=== PATIENT | female | born 1985 | race Caucasian/White ===

== ENCOUNTER 2016-12-13 20:11 | Emergency (ER) | payer MEDICAID | END 2016-12-13 22:00 | disposition home or self-care (01) | LOC: D.ER 20:11 | DX: R13.10 Dysphagia, unspecified (principal); E11.9 Type 2 diabetes mellitus without complications; I10 Essential (primary) hypertension; N93.8 Other specified abnormal uterine and vaginal bleeding; E28.2 Polycystic ovarian syndrome; F17.200 Nicotine dependence, unspecified, uncomplicated; J02.9 Acute pharyngitis, unspecified ==

== ENCOUNTER 2017-02-28 20:09 | Emergency (ER) | payer MEDICAID | END 2017-02-28 23:33 | disposition home or self-care (01) | LOC: D.ER 20:09 | DX: T65.811A Toxic effect of latex, accidental (unintentional), initial encounter (principal); Y92.029 Unspecified place in mobile home as the place of occurrence of the external cause; F17.200 Nicotine dependence, unspecified, uncomplicated; E11.9 Type 2 diabetes mellitus without complications; I10 Essential (primary) hypertension ==

== ENCOUNTER 2019-01-23 14:06 | Emergency (ER) | payer MEDICAID ==
[~2019-01-23] VITALS: Ht 157.5 cm; Wt 102.3 kg
[2019-01-23 14:16] VITALS: Ht 157.5 cm; Wt 102.3 kg
[2019-01-23] MEDS ORDERED: BAYER CHEWABLE81 MG PO (14:19)
[2019-01-23] MEDS ORDERED: LIPITOR40 MG PO (14:19)
[2019-01-23] MEDS ORDERED: BUSPAR10 MG PO (14:20)
[2019-01-23] MEDS ORDERED: CYMBALTA60 MG PO (14:20)
[2019-01-23] MEDS ORDERED: CYCLOBENZAPRINE10 MG PO (14:20)
[2019-01-23] MEDS ORDERED: EPIPEN 2-P0.3 MG/0.3 IM (14:21)
[2019-01-23] MEDS ORDERED: NEURONTIN800 MG PO (14:21)
[2019-01-23] MEDS ORDERED: TRESIBA FL100 UNIT/1 SC (14:22)
[2019-01-23] MEDS ORDERED: HUMULIN N100 U/ML SC (14:22)
[2019-01-23] MEDS ORDERED: ZOFRAN4 MG PO (14:23)
[2019-01-23] MEDS ORDERED: TOPROL XL25 MG PO (14:23)
[2019-01-23] MEDS ORDERED: OMEPRAZOLE20 M1 PO (14:23)
[2019-01-23] MEDS ORDERED: LISINOPRIL2.5 MG PO (14:23)
[2019-01-23] MEDS ORDERED: ZANTAC300 MG PO (14:24)
[2019-01-23] MEDS ORDERED: PIOGLITAZONE15 MG PO (14:24)
[2019-01-23] MEDS ORDERED: ALDACTONE25 MG PO (14:24)
[2019-01-23 15:03] LABS: BASOPHILS 0.3 % (0-2); EOSINOPHILS 1.8 % (0-7); HEMATOCRIT 37.8 % (36.0-48.0); HEMOGLOBIN 12.9 g/dL (12-16); IMMATURE GRANULOCYTES 0.5 % (0-5); LYMPHOCYTES 27.6 % (15-50); MCH 33.2 pg (26.0-34.0); MCHC 34.1 g/dL (31.0-37.0); MCV 97.4 fL (80.0-100.0); MEAN PLATELET VOLUME 10.1 fL (7.4-10.4); MONOCYTES 9.1 % (2-11); NEUTROPHILS 60.7 % (40-80); PLATELET COUNT 248 10x3/uL (130-400); RBC 3.88 10x6/uL (4.00-5.40); RDW 13.3 % (11.5-14.5); WBC 6.2 10x3/uL (4.8-10.8)
[2019-01-23 15:10] LABS: ALBUMIN 3.9 g/dL (3.4-5.0); ALKALINE PHOSPHATASE 87 U/L (46-116); ALT (SGPT) 21 U/L (10-68); BILIRUBIN - TOTAL 0.64 mg/dL (0.2-1.3); CALC OSMOLALITY 281 mosm/kg (275-300); CALCIUM 8.6 mg/dL (8.5-10.1); CARBON DIOXIDE 28.4 mmol/L (21.0-32.0); CHLORIDE - SERUM 101 mmol/L (98-107); CREATININE - SERUM 0.9 mg/dL (0.6-1.3); GLUCOSE 201 mg/dL (74-106); POTASSIUM - SERUM 3.9 mmol/L (3.5-5.1); PROTEIN - SERUM 7.3 g/dL (6.4-8.2); SODIUM 138 mmol/L (136-145); UREA NITROGEN 12 mg/dL (7-18); eGFR NON AFRICAN AMERICAN 75 mL/min (90-120)
[2019-01-23 15:11] LABS: APTT 27.5 SECONDS (22.8-39.4); INR 1.04 (0.85-1.17); PROTIME 13.1 SECONDS (11.6-15.0)
[2019-01-23 15:21] LABS: CKMB 0.3 U/L (0.0-3.6); CREATINE KINASE 101 UL (21-215); MAGNESIUM - SERUM 1.7 mg/dL (1.8-2.4); TROPONIN-I < 0.017 ng/mL (0.000-0.060)
[2019-01-23 18:33] LABS: CKMB 0.3 U/L (0.0-3.6); CREATINE KINASE 81 UL (21-215); TROPONIN-I < 0.017 ng/mL (0.000-0.060)
[2019-01-23] MEDS ORDERED: OMEPRAZOLE40 MG PO (19:19)
[2019-01-23 20:24] VITALS: BP 102/48
== END 2019-01-23 20:24 | disposition home or self-care (01) ==
LOC: D.ER 14:06
PROVIDERS: Family Medicine
DX: K21.9 Gastro-esophageal reflux disease without esophagitis (principal)

== ENCOUNTER 2019-01-26 13:42 | Emergency (ER) | payer MEDICAID ==
[~2019-01-26] VITALS: Ht 157.5 cm; Wt 102.3 kg
[~2019-01-26 13:42] MED LIST: ALDACTONE25 MG PO; BAYER CHEWABLE81 MG PO; BUSPAR10 MG PO; CYCLOBENZAPRINE10 MG PO; CYMBALTA60 MG PO; EPIPEN 2-P0.3 MG/0.3 IM; HUMULIN N100 U/ML SC; LIPITOR40 MG PO; LISINOPRIL2.5 MG PO; NEURONTIN800 MG PO; OMEPRAZOLE20 M1 PO; OMEPRAZOLE40 MG PO; PIOGLITAZONE15 MG PO; TOPROL XL25 MG PO; TRESIBA FL100 UNIT/1 SC; ZANTAC300 MG PO; ZOFRAN4 MG PO
[2019-01-26 13:43] VITALS: Ht 157.5 cm; Wt 102.3 kg
[2019-01-26 16:18] VITALS: BP 132/78
== END 2019-01-26 16:19 | disposition home or self-care (01) ==
LOC: D.ER 13:42
DX: R51 Headache (principal); E11.9 Type 2 diabetes mellitus without complications

== ENCOUNTER 2019-02-08 10:03 | Emergency (ER) | payer MEDICAID ==
[~2019-02-08] VITALS: Ht 157.5 cm; Wt 98.6 kg
[2019-02-08 10:07] VITALS: Ht 157.5 cm; Wt 98.6 kg
[2019-02-08] MEDS ORDERED: DOXYCYCLINE (10:09)
[2019-02-08 11:02] LABS: HCG URINE NEGATIVE (NEGATIVE)
[2019-02-08 11:07] LABS: BASOPHILS 0.2 % (0-2); EOSINOPHILS 0.8 % (0-7); HEMATOCRIT 39.8 % (36.0-48.0); HEMOGLOBIN 14.3 g/dL (12-16); IMMATURE GRANULOCYTES 0.3 % (0-5); LYMPHOCYTES 17.4 % (15-50); MCH 33.4 pg (26.0-34.0); MCHC 35.9 g/dL (31.0-37.0); MEAN PLATELET VOLUME 10.9 fL (7.4-10.4); MONOCYTES 6.6 % (2-11); NEUTROPHILS 74.7 % (40-80); PLATELET COUNT 277 10x3/uL (130-400); RBC 4.28 10x6/uL (4.00-5.40); WBC 11.9 10x3/uL (4.8-10.8)
[2019-02-08 11:09] LABS: UDS - AMPHET NEGATIVE QUAL (NEGATIVE); UDS - BARB NEGATIVE QUAL (NEGATIVE); UDS - BENZO NEGATIVE QUAL (NEGATIVE); UDS - COCAINE NEGATIVE QUAL (NEGATIVE); UDS - OPIATE NEGATIVE QUAL (NEGATIVE); UDS - PCP NEGATIVE QUAL (NEGATIVE); UDS - THC POSITIVE QUAL (NEGATIVE)
[2019-02-08 11:15] LABS: APPEARANCE CLEAR (CLEAR); BILIRUBIN NEGATIVE (NEGATIVE); COLOR YELLOW (YELLOW); GLUCOSE 50 mg/dL (NEGATIVE); KETONE NEGATIVE (NEGATIVE); NITRITE NEGATIVE (NEGATIVE); PROTEIN NEGATIVE (NEGATIVE); UROBILINOGEN NORMAL (NORMAL)
[2019-02-08 11:29] LABS: INR 1.04 (0.85-1.17); PROTIME 13.1 SECONDS (11.6-15.0)
--- NOTE | 2019-02-08 11:53 | NUR ---
ACOORDING TO THE SUICIDE ASSESSMENT SCORE THE PATIENT SCORES LOW AND DOES NOT REQUIRE A 1:1 ASSESSMENT.
[2019-02-08 12:59] LABS: ALBUMIN 4.2 g/dL (3.4-5.0); ALKALINE PHOSPHATASE 76 U/L (46-116); ALT (SGPT) 19 U/L (10-68); BILIRUBIN - TOTAL 0.74 mg/dL (0.2-1.3); CALC OSMOLALITY 282 mosm/kg (275-300); CALCIUM 8.8 mg/dL (8.5-10.1); CARBON DIOXIDE 24.8 mmol/L (21.0-32.0); CHLORIDE - SERUM 105 mmol/L (98-107); CREATININE - SERUM 0.8 mg/dL (0.6-1.3); GLUCOSE 172 mg/dL (74-106); PROTEIN - SERUM 7.3 g/dL (6.4-8.2); SODIUM 140 mmol/L (136-145); UREA NITROGEN 12 mg/dL (7-18); eGFR NON AFRICAN AMERICAN 86 mL/min (90-120)
[2019-02-08 13:02] LABS: AMYLASE - SERUM 30 U/L (25-115); LIPASE 122 U/L (73-393)
[2019-02-08 13:03] LABS: TROPONIN-I < 0.017 ng/mL (0.000-0.060)
[2019-02-08] MEDS ORDERED: ZOFRAN ODT4 MG/UDTAB PO (13:56)
[2019-02-08 13:57] VITALS: BP 138/70
== END 2019-02-08 14:24 | disposition home or self-care (01) ==
LOC: D.ER 10:03
PROVIDERS: Family Medicine
DX: R11.2 Nausea with vomiting, unspecified (principal); H92.02 Otalgia, left ear; Z76.5 Malingerer [conscious simulation]

== ENCOUNTER 2019-10-02 22:25 | Emergency (ER) | payer MEDICAID ==
[~2019-10-02] VITALS: Ht 157.5 cm; Wt 109.1 kg
[~2019-10-02 22:25] MED LIST changes: +DOXYCYCLINE; +ZOFRAN ODT4 MG/UDTAB PO
[2019-10-02 22:27] VITALS: Ht 157.5 cm; Wt 109.1 kg
[2019-10-02] MEDS ORDERED: METOPROLOL TART25 MG PO (22:32)
[2019-10-02] MEDS ORDERED: LEXAPRO20 MG PO (22:33)
[2019-10-02] MEDS ORDERED: PROTONIX40 MG PO (22:33)
[2019-10-02] MEDS ORDERED: COZAAR25 MG PO (22:33)
[2019-10-02] MEDS ORDERED: LIPITOR40 MG PO (22:33)
[2019-10-02] MEDS ORDERED: NOVOLOG100 UNIT/1 SC (22:34)
[2019-10-02] MEDS ORDERED: LEVEMIR IN100 UNITS/ SC (22:34)
[2019-10-02] MEDS ORDERED: VISTARIL25 MG PO (22:35)
[2019-10-02 22:50] LABS: BILIRUBIN NEGATIVE (NEGATIVE); GLUCOSE NEGATIVE (NEGATIVE); KETONE NEGATIVE (NEGATIVE); NITRITE NEGATIVE (NEGATIVE); SPECIFIC GRAVITY 1.005 (1.005-1.020); UROBILINOGEN NORMAL (NORMAL)
[2019-10-02 22:54] LABS: BACTERIA FEW /hpf (NEGATIVE); EPITHELIAL CELLS 0-5 /hpf (0-5); RED CELLS - URINE 0-5 /hpf (0-5); WHITE CELLS - URINE 0-5 /hpf (NEGATIVE)
[2019-10-03] MEDS ORDERED: MACROBID100 MG PO (00:18)
[2019-10-03 00:57] VITALS: BP 121/67
== END 2019-10-03 00:58 | disposition home or self-care (01) ==
LOC: D.ER 22:25
PROVIDERS: Family Medicine
DX: N30.90 Cystitis, unspecified without hematuria (principal); E11.9 Type 2 diabetes mellitus without complications; I11.0 Hypertensive heart disease with heart failure; I50.9 Heart failure, unspecified; K21.9 Gastro-esophageal reflux disease without esophagitis; Z72.0 Tobacco use; Z79.4 Long term (current) use of insulin; M54.5 Low back pain; R10.30 Lower abdominal pain, unspecified

== ENCOUNTER 2019-10-27 17:21 | Emergency (ER) | payer MEDICAID ==
[~2019-10-27] VITALS: Ht 157.5 cm; Wt 105.5 kg
[~2019-10-27 17:21] MED LIST changes: +COZAAR25 MG PO; +LEVEMIR IN100 UNITS/ SC; +LEXAPRO20 MG PO; +MACROBID100 MG PO; +METOPROLOL TART25 MG PO; +NOVOLOG100 UNIT/1 SC; +PROTONIX40 MG PO; +VISTARIL25 MG PO
[2019-10-27 17:33] VITALS: Ht 157.5 cm; Wt 105.5 kg
[2019-10-27 17:55] LABS: BASOPHILS 0.2 % (0-2); EOSINOPHILS 1.2 % (0-7); HEMATOCRIT 39.5 % (36.0-48.0); HEMOGLOBIN 13.1 g/dL (12-16); IMMATURE GRANULOCYTES 0.2 % (0-5); LYMPHOCYTES 16.7 % (15-50); MCH 31.4 pg (26.0-34.0); MCHC 33.2 g/dL (31.0-37.0); MCV 94.7 fL (80.0-100.0); MEAN PLATELET VOLUME 9.6 fL (7.4-10.4); MONOCYTES 8.1 % (2-11); NEUTROPHILS 73.6 % (40-80); PLATELET COUNT 242 10x3/uL (130-400); RBC 4.17 10x6/uL (4.00-5.40); RDW 13.5 % (11.5-14.5); WBC 11.4 10x3/uL (4.8-10.8)
[2019-10-27 18:08] LABS: CALC OSMOLALITY 279 mosm/kg (275-300); CALCIUM 8.6 mg/dL (8.5-10.1); CARBON DIOXIDE 30.7 mmol/L (21.0-32.0); CHLORIDE - SERUM 99 mmol/L (98-107); SODIUM 136 mmol/L (136-145); UREA NITROGEN 12 mg/dL (7-18); eGFR NON AFRICAN AMERICAN 67 mL/min (90-120)
[2019-10-27 18:11] LABS: GLUCOSE 244 mg/dL (74-106)
[2019-10-27 18:26] LABS: ALBUMIN 3.7 g/dL (3.4-5.0); ALKALINE PHOSPHATASE 91 U/L (30-120); ALT (SGPT) 32 U/L (10-68); APTT 30.1 SECONDS (22.8-39.4); BILIRUBIN - TOTAL 0.61 mg/dL (0.2-1.3); CKMB 0.4 U/L (0.0-3.6); CREATINE KINASE 68 UL (21-215); INR 1.15 (0.85-1.17); MAGNESIUM - SERUM 1.6 mg/dL (1.8-2.4); PROTEIN - SERUM 7.3 g/dL (6.4-8.2); PROTIME 14.7 SECONDS (11.6-15.0)
[2019-10-27 18:30] LABS: TROPONIN-I < 0.017 ng/mL (0.000-0.060)
[2019-10-27 20:41] LABS: CKMB 0.1 U/L (0.0-3.6); CREATINE KINASE 72 UL (21-215); TROPONIN-I < 0.017 ng/mL (0.000-0.060)
[2019-10-27 21:38] VITALS: BP 105/48
== END 2019-10-27 21:38 | disposition home or self-care (01) ==
LOC: D.ER 17:21
PROVIDERS: Family Medicine
DX: R07.89 Other chest pain (principal); R42 Dizziness and giddiness; R00.2 Palpitations; E11.9 Type 2 diabetes mellitus without complications; I11.0 Hypertensive heart disease with heart failure; I50.9 Heart failure, unspecified; K21.9 Gastro-esophageal reflux disease without esophagitis; Z72.0 Tobacco use; Z79.4 Long term (current) use of insulin

== ENCOUNTER 2019-12-30 05:14 | Emergency (ER) | payer MEDICAID ==
[~2019-12-30] VITALS: Ht 157.5 cm; Wt 104.5 kg
[2019-12-30 05:23] VITALS: Ht 157.5 cm; Wt 104.5 kg
[2019-12-30] MEDS ORDERED: ULTRAM50 MG PO (06:28)
[2019-12-30 06:49] VITALS: BP 130/80
== END 2019-12-30 06:46 | disposition home or self-care (01) ==
LOC: D.ER 05:14
DX: S20.211A Contusion of right front wall of thorax, initial encounter (principal); S60.211A Contusion of right wrist, initial encounter; E11.9 Type 2 diabetes mellitus without complications; I11.0 Hypertensive heart disease with heart failure; I50.9 Heart failure, unspecified; Z79.4 Long term (current) use of insulin; Z72.0 Tobacco use; W19.XXXA Unspecified fall, initial encounter; Y93.9 Activity, unspecified; Y92.9 Unspecified place or not applicable

== ENCOUNTER 2020-01-09 22:52 | Emergency (ER) | payer MEDICAID ==
[~2020-01-09] VITALS: Ht 157.5 cm; Wt 113.4 kg
[~2020-01-09 22:52] MED LIST changes: +ULTRAM50 MG PO
[2020-01-09 23:05] VITALS: Ht 157.5 cm; Wt 113.4 kg
[2020-01-09] MEDS ORDERED: RISPERDAL1 MG PO (23:07)
[2020-01-09] MEDS ORDERED: EFFEXOR75 MG PO (23:07)
[2020-01-09] MEDS ORDERED: NEXIUM40 MG PO (23:08)
[2020-01-09 23:48] LABS: HEMOGLOBIN 13.3 g/dL (12-16); LYMPHOCYTES 31.7 % (15-50); MCH 32.6 pg (26.0-34.0); MCV 93.1 fL (80.0-100.0); MEAN PLATELET VOLUME 9.3 fL (7.4-10.4); NEUTROPHILS 62.4 % (40-80); PLATELET COUNT 252 10x3/uL (130-400); RBC 4.08 10x6/uL (4.00-5.40); RDW 12.6 % (11.5-14.5); WBC 10.5 10x3/uL (4.8-10.8)
[2020-01-09 23:50] LABS: BILIRUBIN NEGATIVE (NEGATIVE); GLUCOSE 1000 mg/dL (NEGATIVE); KETONE NEGATIVE (NEGATIVE); NITRITE NEGATIVE (NEGATIVE); UROBILINOGEN NORMAL (NORMAL)
[2020-01-10 00:03] LABS: CALC OSMOLALITY 282 mosm/kg (275-300); CALCIUM 8.7 mg/dL (8.5-10.1); CARBON DIOXIDE 27.4 mmol/L (21.0-32.0); CHLORIDE - SERUM 102 mmol/L (98-107); GLUCOSE 285 mg/dL (74-106); POTASSIUM - SERUM 4.4 mmol/L (3.5-5.1); SODIUM 136 mmol/L (136-145); UREA NITROGEN 14 mg/dL (7-18); eGFR NON AFRICAN AMERICAN 66 mL/min (90-120)
[2020-01-10 00:05] LABS: HCG SERUM NEGATIVE (NEGATIVE)
[2020-01-10 00:16] LABS: ALBUMIN 3.7 g/dL (3.4-5.0); ALKALINE PHOSPHATASE 101 U/L (30-120); ALT (SGPT) 20 U/L (10-68); BILIRUBIN - TOTAL 0.29 mg/dL (0.2-1.3); CKMB 0.5 U/L (0.0-3.6); CREATINE KINASE 91 UL (21-215); PROTEIN - SERUM 7.3 g/dL (6.4-8.2); TROPONIN-I < 0.017 ng/mL (0.000-0.060)
[2020-01-10 01:11] LABS: D-DIMER-QUANTITATIVE < 0.27 ug/mLFEU (0.20-0.54)
[2020-01-10 01:14] LABS: APTT 24.9 SECONDS (22.8-39.4); INR 0.88 (0.85-1.17); PROTIME 11.9 SECONDS (11.6-15.0)
[2020-01-10] MEDS ORDERED: CARAFATE1 G PO (01:38)
[2020-01-10 01:48] VITALS: BP 127/64
== END 2020-01-10 01:44 | disposition home or self-care (01) ==
LOC: D.ER 22:52
PROVIDERS: Family Medicine
DX: R07.9 Chest pain, unspecified (principal); J40 Bronchitis, not specified as acute or chronic; K21.9 Gastro-esophageal reflux disease without esophagitis; I10 Essential (primary) hypertension; Z72.0 Tobacco use; R05 Cough; R06.02 Shortness of breath

== ENCOUNTER 2020-01-28 21:10 | Emergency (ER) | payer MEDICAID ==
[~2020-01-28] VITALS: Ht 157.5 cm; Wt 113.6 kg
[~2020-01-28 21:10] MED LIST changes: +CARAFATE1 G PO; +EFFEXOR75 MG PO; +NEXIUM40 MG PO; +RISPERDAL1 MG PO
[2020-01-28 21:51] VITALS: Ht 157.5 cm; Wt 113.6 kg
[2020-01-28 22:46] LABS: BILIRUBIN NEGATIVE (NEGATIVE); KETONE NEGATIVE (NEGATIVE); NITRITE NEGATIVE (NEGATIVE); UROBILINOGEN NORMAL (NORMAL)
[2020-01-28 22:48] LABS: HCG URINE NEGATIVE (NEGATIVE)
[2020-01-28 22:52] LABS: BACTERIA MODERATE /hpf (NONE SEEN); EPITHELIAL CELLS 0-5 /hpf (0-5); WHITE CELLS - URINE 0-5 /hpf (0-5)
[2020-01-28] MEDS ORDERED: PHENAZOPYRIDIN100 MG PO (22:54)
[2020-01-28] MEDS ORDERED: MACROBID100 MG PO (22:54)
[2020-01-29 00:57] VITALS: BP 125/70
== END 2020-01-29 00:58 | disposition home or self-care (01) ==
LOC: D.ER 21:10
PROVIDERS: Family Medicine
DX: N39.0 Urinary tract infection, site not specified (principal); K21.9 Gastro-esophageal reflux disease without esophagitis

== ENCOUNTER → 2020-10-20 09:20 | Outpatient (CLI) | payer OTHER ==
[2020-03-21 07:44] VITALS: BMI 45.8
[~2020-10-20 09:20] MED LIST changes: +ACETAMINOPHEN500 M1 PO; +IBUPROFEN800 MG PO; +KEFLEX500 MG PO; +ORAL ANALGESIC9 GM TOPICAL; +PHENAZOPYRIDIN100 MG PO; +TOPROL XL50 MG PO
== END | disposition home or self-care (01) ==
LOC: D.RAD 09:20
PROVIDERS: ATTEND Pain Medicine Interventional Pain Medicine
DX: M54.2 Cervicalgia (principal)

== ENCOUNTER 2020-10-23 18:32 | Emergency (ER) | payer OTHER ==
[~2020-10-23] VITALS: Ht 157.5 cm; Wt 125.0 kg
[2020-10-23 18:36] VITALS: Ht 157.5 cm; Wt 125.0 kg
[2020-10-23] MEDS ORDERED: METHOCARBAMOL500 MG PO (19:46)
[2020-10-23] MEDS ORDERED: ARTHROTEC 501 TAB.EC PO (19:46)
[2020-10-23 21:49] VITALS: BP 131/79
== END 2020-10-23 21:15 | disposition home or self-care (01) ==
LOC: D.ER 18:32
DX: M54.12 Radiculopathy, cervical region (principal); E11.9 Type 2 diabetes mellitus without complications; I10 Essential (primary) hypertension; Z72.0 Tobacco use; Z79.4 Long term (current) use of insulin